=== PATIENT | female | born 1995 | race Hispanic/Latino ===

== ENCOUNTER 2019-10-24 19:32 | Emergency (ER) | payer BC ==
[~2019-10-24] VITALS: Ht 165.1 cm; Wt 81.6 kg
--- OUTSIDE RECORDS SUMMARY | 2019-10-24 19:35 | XMS REPORT ---
Author Author [facility] t Organization [facility] Address Unknown Phone Unavailable Care Team Providers Care Furnace Checker Name Role Phone Unavailable Unavailable Payers Payer Name Policy Type Policy Number Effective Date Expiration D ate Problems This patient has no known problems. Allergies, Adverse Reactions, Alerts Allergy Name Allergy Type Status Severity Reaction(s) Onset Date Inacti ve Date Treating Clinician Comments No Known Allergies DA Active U 2018-02-16 00:00:00 No Known Allergies DA Active U 2015-05-11 00:00:00 Medications This patient has no known medications. Results Test Description Test Time Test Comments Text Results Atomic Results Result Comments [facility] CONTENTS 2018-02-22 14:07:00 RUN DATE: 02/22/18 Tablefinder PAGE 1 RUN TIME: 1407 Specimen Inquiry RUN USER: INTERFACE PATIENT: MILAN BENAVIDEZ LOC: [facility] U #: [id number] AGE/SX: 23/F ROOM: RE02/19/18REG DR: Mateo Wilcox MD : 93 BED: DIS: STATUS: [facility] TLOC: SPEC #: [id number] RECD: 02/19/18 STATUS: [facility] #: [id number] MOHAMUD: 02/19/18- [facility] DR: Mateo Wilcox MD ENTERED: 02/19/18 SP TYPE: UTERCONTS OTHR DR: Nikko Daniels MD ORDERED: GROSS COPIES TO: Mateo Wilcox MD [address] [place] [address] Nikko Daniels MD [address] [facility] [address] [place] [address] PROCEDURES: GROSS (02/22/18-1220) TISSUES: PRODUCTS OF CONCEPTION, NOS - RETAIN CLINICAL HISTORY COLLECTION DATE: 02/19/18 FINAL DIAGNOSIS Retained products of conception, dilatation and curettage: SECRETORY ENDOMETRIUM WITH AREAS OF NECROSIS AND ACUTE INFLAMMATION NO CHORIONIC VILLI SEEN TOBIAS/rl D [id number] MACROSCOPIC The specimen is received in formalin, labeled with the patient's name and identified as "retained products of conception". The specimen is received in a plastic container containing multiple fishman-pink frag ments of tissue measuring 4.0 X 3.0 X 0.8 cm in aggregate. The tissue is entirely submitted in cassettes (1A and 1B). GROSS PERFORMED AT [facility] CONTINUED ON NEXT PAGE RUN DATE: 02/22/18 Tablefinder PAGE 2 RUN TIME: 1407 Specimen Inquiry RUN USER: INTERFACE SPEC #: [id number] PATIENT: WEBB SRIKANTH VIRKILIA FORREST #[id number] (Continued) MACROSCOPIC (Continued) [facility] [address] [place] [address], [place] [address] (p)[phone] MICROSCOPIC MICROSCOPIC PERFORMED AT [facility] All of the stains, including any controls performed, stain appropriately. [facility] [address] [facility] [place] [address] (p)[phone] PERFORMING SITE Diagnosis performed at: [facility], [address] [place] [address] Signed SIGNATURE ON FILE PopeMilagro 02/22/18 1407 END OF REPORT
[2019-10-24] MEDS ORDERED: ONDANSETRON HCL 4 MG ORAL DISINTEGRATING TAB PO ONE (20:15)
[2019-10-24] MEDS ORDERED: PROMETHAZINE HCL (IM) 25 MG/ML VIAL IM ONE (20:15)
[2019-10-24] MEDS ORDERED: PROMETHAZINE HCL (IM) 25 MG/ML VIAL ONE (20:22)
[2019-10-24] MEDS ORDERED: ONDANSETRON HCL 4 MG ORAL DISINTEGRATING TAB ONE (20:22)
--- NOTE | 2019-10-24 21:10 | Emergency Department Note ---
History of Present Illnes History of Present Illness Chief Complaint: nausea/vomiting Stated Complaint: VOMITING History of Present Illness This is a 24 year old female. was doing well prior to this. then n/v. 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 Any updates have been documented here. Past Medical History Recent Fever: No Clinical Suspicion of Infectio: No New/Unexplained Change in Ment: No Past Medical History: Asthma, Migraines Past Surgical History: Hysterectomy Other Surgery: D&C Social History Smoking Cessation: Never Smoker Counseling Performed: No Alcohol Use: None Any Illegal Drug Use: No TB Exposure/Symptoms: No Physically hurt or threatened: No Family History Family history of heart diseas: No Other Last Tetanus: UTD Any Pre-Existing Lines (PICC,: No Is patient up to date on immun: No Last Flu: NO Last Pneumovax: NO Review of Systems Review of Systems Constitutional: no symptoms EENTM: no symptoms Cardiovascular: no symptoms Gastointestinal/Abdominal: as per HPI, nausea, vomiting Genitourinary: no symptoms Musculoskeletal: no symptoms Integumentary: no symptoms Neurological: no symptoms Psychological: no symptoms Endocrine: no symptoms Hematological/Lymphatic: no symptoms Review of other systems All other systems reviewed and negative. Physical Exam Related Data Allergies: Coded Allergies: No Known Allergies (Unverified , 10/24/19) Triage Vital Signs Vital Signs Date Time Temp Pulse Resp B/P (MAP) Pulse Ox O2 Delivery O2 Flow Rate FiO2 10/24/19 19:45 97.8 96 18 131/85 100 Physical Exam CONSTITUTIONAL Constitutional: well-developed, well-nourished HENT HENT: normocephalic, atraumatic, oropharynx clear/moist, nose normal HENT - Ear: left ext ear normal, right ext ear normal EYES Eyes: PERRL, conjunctivae normal NECK Neck: ROM normal PULMONARY Pulmonary: effort normal, breath sounds normal CARDIOVASCULAR Cardiovascular: regular rhythm, heart sounds normal, capillary refill normal, normal rate GASTROINTESTINAL Abdominal: soft, nontender, bowel sounds normal GENITOURINARY Genitourinary: exam deferred SKIN Skin: warm, dry MUSCULOSKELETAL Musculoskeletal: ROM normal NEUROLOGICAL Neurological: alert, oriented x 3, no gross motor or sensory deficits PSYCHOLOGICAL Psychiatric/behavioral: mood/affect normal, judgement normal Results Laboratory Lab results reviewed: Yes (nl ua except specific gravity greater than 1.3 / u hcg neg) Critical Care Time Subsequent provider I assumed direction of critical care for this patient from another provider of m y specialty. Assessment & Plan Assessment & Plan Problems: (1) Vomiting (2) Dehydration Reassessment Reassessment symptoms resolved Depart Disposition: HOME, SELF-CARE Last Vital Signs Date Time Temp Pulse Resp B/P (MAP) Pulse Ox O2 Delivery O2 Flow Rate FiO2 10/24/19 19:45 97.8 96 18 131/85 100 Home Meds Active Scripts Promethazine Hcl* (PHENERGAN SUPP*) 25 Mg Supp, 25 MG PO Q4HR PRN for NAUSEA AND VOMITING for 5 Days, #30 SUPP.RECT take after zofran to control nausea/vomiting Prov:URSULA ARMSTRONG 10/24/19 Ondansetron (ONDANSETRON ODT) 8 Mg Tab.rapdis, 4 MG PO Q4HR PRN for NAUSEA AND VOMITING for 5 Days, #30 TAB Prov:URSULA ARMSTRONG 10/24/19 Medications in the ED Promethazine HCl 25 mg ONCE ONCE IM Last administered on 10/24/19at 20:23; Admin Dose 25 MG; Start 10/24/19 at 20:15; Stop 10/24/19 at 20:16 Ondansetron HCl 4 mg ONCE ONCE PO ; Start 10/24/19 at 20:15; Stop 10/24/19 at 20:16 Ondansetron HCl 4 mg STK-MED ONCE .ROUTE ; Start 10/24/19 at 20:22; Stop 10/24/19 at 20:19; Status DC Promethazine HCl 25 mg STK-MED ONCE .ROUTE ; Start 10/24/19 at 20:22; Stop 10/24/19 at 20:19; Status DC URSULA ARMSTRONG October 24, 2019 21:10
[2019-10-24] MEDS ORDERED: PHENERGAN SUPP25 MG PO (21:16)
[2019-10-24] MEDS ORDERED: ONDANSETRON ODT8 MG PO (21:16)
[2019-10-24 21:29] VITALS: BP 128/85
== END 2019-10-24 21:30 | disposition home or self-care (01) ==
LOC: FSED 19:32
DX: R11.2 Nausea with vomiting, unspecified (principal); E86.0 Dehydration; J45.909 Unspecified asthma, uncomplicated
CPT/HCPCS: 99283; J2550; Q0162